=== PATIENT | male | born 1940 | race Two or more races ===

== ENCOUNTER 2022-04-28 09:56 | Emergency (ER) | payer OTHER ==
[~2022-04-28] VITALS: Ht 180.3 cm; Wt 99.8 kg
[2022-04-28] MEDS ORDERED: ASA81 MG (10:10)
== END 2022-04-28 12:42 | disposition home or self-care (01) ==
LOC: ER 09:56
DX: R10.9 Unspecified abdominal pain (principal); E78.00 Pure hypercholesterolemia, unspecified; I10 Essential (primary) hypertension; Z20.822 Contact with and (suspected) exposure to COVID-19

== ENCOUNTER 2022-06-10 20:29 | Emergency (ER) | payer OTHER ==
[~2022-06-10] VITALS: Ht 180.3 cm; Wt 85.7 kg
[~2022-06-10 20:29] MED LIST: ASA81 MG
[2022-06-10] MEDS ORDERED: ZETIA10 MG PO (20:53)
[2022-06-10] MEDS ORDERED: NEURONTIN300 MG PO (20:53)
[2022-06-10] MEDS ORDERED: ACID REDUCER20 M1 PO (20:54)
[2022-06-10] MEDS ORDERED: ZYRTEC10 M3 PO (20:54)
[2022-06-10] MEDS ORDERED: TUSNEL LIQUID178 ML PO (23:03)
[2022-06-10] MEDS ORDERED: XOPENEX0.63 MG/3 IH (23:03)
[2022-06-10] MEDS ORDERED: PAXLOVID 300-11 EACH PO (23:03)
[2022-06-10] MEDS ORDERED: MEDROLPACK PO (23:03)
== END 2022-06-11 01:15 | disposition home or self-care (01) ==
LOC: ER 20:29
DX: U07.1 COVID-19 (principal); J45.901 Unspecified asthma with (acute) exacerbation